=== PATIENT | female | born 1970 | race African-American/Black ===

== ENCOUNTER 2020-04-07 21:50 | Emergency (ER) | payer SELFPAY ==
[~2020-04-07] VITALS: Ht 180.3 cm; Wt 90.9 kg
[2020-04-07 22:12] VITALS: BP 133/98
== END 2020-04-07 23:15 | disposition left against medical advice (07) ==
LOC: EMS 21:51
DX: M79.642 Pain in left hand (principal); Z53.21 Procedure and treatment not carried out due to patient leaving prior to being seen by health care provider
CPT/HCPCS: 73130-TC